=== PATIENT | female | born 1930 | race Caucasian/White ===

== ENCOUNTER → 2016-06-22 | Outpatient (CLI) | payer MEDICARE, OTHER ==
[~2016-06-22] MED LIST: ACTONEL150 MG PO; ALBUTEROL2 PUFFS/17 IN; AMIODARONE HCL200 MG PO; ASPIRIN325 M1 PO; ATENOLOL25 MG PO; CALTRATE 600 +1 TAB PO; GABAPENTIN100 MG PO; HCTZ/TRIAMTEREN1 CA1 PO; K-DUR 2020 MEQ PO; NIFEDIPINE ER30 MG PO; PREDNISONE 20MG20 MG PO; WARFARIN SODIUM3 MG PO
--- NOTE | 2016-06-22 16:54 | RADIOLOGY REPORT PS360 ---
CT ABD PELVIS W/WO CONTRAST INDICATION: CYSTIC STRUCTURE RUQ GB FOSSA, RT RENAL CYSTS, follow-up abnormal ultrasound showing a complex cystic right upper quadrant mass and complex right renal cysts ORDERING PHYSICIAN: Speedy Farley MD PATIENT AGE: 86 years COMPARISON: None TECHNIQUE: Axial images are obtained without and with contrast. Sagittal and coronal reformatted images are reviewed as well. Images are obtained without and with contrast. 30 seconds, 60 seconds, and 10 minute delayed images are obtained without contrast. FINDINGS: There are multiple bilateral renal cysts. There is a large cyst on the right in the upper pole anteriorly which does project into the gallbladder fossa. This cyst measures 5.5 x 5.2 cm and corresponds to the septated cystic area seen in the gallbladder fossa. The cyst has an unremarkable appearance by CT. There are multiple other renal cysts present with an additional large cyst on the right inferiorly at 6.9 x 5.3 cm. There are multiple left renal cyst as well measuring up to 2.5 cm inferiorly. In addition, there is a fat-containing left renal lesion noted laterally measuring 2 cm consistent with an angiomyolipoma. No suspicious renal lesions are evident. No renal or ureteral calculi or hydronephrosis. There are some mild fibrotic changes in the lung bases. There is cardiomegaly There is a small hiatal hernia. The liver, spleen, adrenal glands, and pancreas have an unremarkable appearance. There is a moderate amount retained colonic feces. No focal inflammatory change evident. No evidence of diverticulitis or appendicitis. There is a cystic area in the left adnexa and 2.9 cm probably related to an ovarian cyst. There has been prior hysterectomy. Lumbar spondylosis noted. 6 mm anterolisthesis of L3 on L4 IMPRESSION: 1. Bilateral renal cyst as described above. Sonographic abnormality within the gallbladder fossa is felt to represent an exophytic renal cyst. No suspicious renal cyst evident by CT criteria. 2. Left renal angiomyolipoma. 3. 2.9 cm rounded lesion in the left pelvic area probably related to an ovarian cyst and may be confirmed with ultrasound if clinically warranted. 4. Other nonacute findings as described above
== END ==
LOC: RAD 09:35
DX: R93.5 Abnormal findings on diagnostic imaging of other abdominal regions, including retroperitoneum (principal)
CPT/HCPCS: Q9967

== ENCOUNTER → 2016-09-01 | Outpatient (CLI) | payer MEDICARE, OTHER ==
[2016-09-01 12:08] LABS: BUN 36 mg/dL (7-18)
[2016-09-01 12:11] LABS: GFR (ESTIMATED) 43 ML/MIN (59-)
== END ==
LOC: LAB 10:47
PROVIDERS: Internal Medicine Nephrology
DX: I10 Essential (primary) hypertension (principal); N18.9 Chronic kidney disease, unspecified

== ENCOUNTER → 2016-09-11 | Outpatient (CLI) | payer MEDICARE, OTHER ==
[2016-09-11 12:35] LABS: URINE BILIRUBIN - DIPSTICK NEGATIVE (NEG); URINE BLOOD NEGATIVE (NEG)
[2016-09-11 12:47] LABS: URINE SQUAMOUS CELLS OCC #/hpf (0-5)
[2016-09-11 15:40] LABS: BUN 29 mg/dL (7-18)
[2016-09-11 16:36] LABS: GFR (ESTIMATED) 53 ML/MIN (59-)
== END ==
LOC: LAB 12:08
PROVIDERS: Internal Medicine Nephrology
DX: I10 Essential (primary) hypertension (principal); N18.9 Chronic kidney disease, unspecified; E55.9 Vitamin D deficiency, unspecified